=== PATIENT | female | born 1970 | race African-American/Black ===

== ENCOUNTER 2024-03-30 20:08 | Emergency (ER) | payer OTHER ==
[2024-03-30 20:19] VITALS: BP 141/83; PULSE 73; RESP 20; TEMP 97.9; BMI 30.9
[2024-03-30] MEDS ORDERED: ACETAMINOPHEN 500 MG TABLET (FP) ONE (21:35)
[2024-03-30] MEDS: ACETAMINOPHEN 500 MG TABLET (FP) PO ONE (21:44)
[2024-03-30] MEDS ORDERED: IBUPROFEN 600 MG TABLET (FP) PO ONE (23:12)
[2024-03-30] MEDS ORDERED: CLINDAMYCIN HCL 150 MG CAPSULE (FP) ONE (23:12)
[2024-03-30] MEDS: CLINDAMYCIN HCL 150 MG CAPSULE (FP) PO ONE (23:19)
[2024-03-30] MEDS: IBUPROFEN 600 MG TABLET (FP) PO ONE (23:19)
== END 2024-03-30 23:20 | disposition home or self-care (01) ==
LOC: JER 20:08 → JERFT 20:08 → JER 23:20
PROC: 0H90XZZ Drainage of Scalp Skin, External Approach (ICD-10-PCS; principal; 2024-03-30)
DX: L02.811 Cutaneous abscess of head [any part, except face] (principal); R51.9 Headache, unspecified; R11.0 Nausea
CPT/HCPCS: 99284-25